=== PATIENT | female | born 1960 | race Caucasian/White ===

== ENCOUNTER → 2016-12-29 | Outpatient (CLI) | payer OTHER | LOC: FIMAGING 19:21 | PROVIDERS: ATTEND Physician Assistant Medical | DX: M50.91 Cervical disc disorder, unspecified, high cervical region (principal); M50.921 Unspecified cervical disc disorder at C4-C5 level; M50.922 Unspecified cervical disc disorder at C5-C6 level ==

== ENCOUNTER → 2017-01-09 | Outpatient (CLI) | payer OTHER | LOC: FIMAGING 18:41 | PROVIDERS: ATTEND Physician Assistant | DX: G56.81 Other specified mononeuropathies of right upper limb (principal) ==

== ENCOUNTER → 2017-03-09 | Outpatient (CLI) | payer OTHER | LOC: FIMAGING 14:01 | PROVIDERS: ATTEND Obstetrics & Gynecology | DX: Z12.31 Encounter for screening mammogram for malignant neoplasm of breast (principal) | CPT/HCPCS: G0202 ==

== ENCOUNTER → 2017-04-02 | Outpatient (CLI) | payer OTHER ==
[~2017-04-02] MED LIST: GADOBUTROL 10 ML VIAL IVP ONE
== END ==
LOC: FIMAGING 18:40
PROVIDERS: ATTEND Physician Assistant
DX: M25.821 Other specified joint disorders, right elbow (principal)
CPT/HCPCS: A9585

== ENCOUNTER → 2017-04-09 | Outpatient (CLI) | payer OTHER | LOC: FIMAGING 08:04 | PROVIDERS: ATTEND Internal Medicine Gastroenterology | DX: Z12.10 Encounter for screening for malignant neoplasm of intestinal tract, unspecified (principal); Z80.0 Family history of malignant neoplasm of digestive organs ==